=== PATIENT | male | born 1960 | race Caucasian/White ===

== ENCOUNTER 2020-12-20 20:16 | Inpatient (IN) | payer MEDICARE, OTHER ==
[~2020-12-20] VITALS: Ht 172.7 cm; Wt 68.0 kg
--- NOTE | 2020-12-20 21:03 | NUR ---
Dr. Roberts at bedside for MSE.
[2020-12-20 21:16] LABS: *BILIRUBIN,URIN 1+ (NEGATIVE); *CLARITY,URINE CLEAR (CLEAR); *COLOR,URINE DARK YELLOW (YELLOW); *KETONES,URINE 3+ (NEGATIVE); LEUKOCYTE ESTERASE ,URINE NEGATIVE (NEGATIVE); NITRITE, URINE NEGATIVE (NEGATIVE); UGLUCOSE NEGATIVE (NEGATIVE)
[2020-12-20 21:17] LABS: *BLOOD, URINE TRACE INTACT (NEGATIVE); BACTERIA,URINE NONE SEEN /HPF (NONE SEEN); WBC,URINE 0-3 /HPF (0-3)
[2020-12-20 21:40] LABS: CARBON DIOXIDE 30 mmol/L (21-32); CHLORIDE 102 mmol/L (98-107); CREATININE 0.8 mg/dL (0.6-1.3); GLUCOSE 76 mg/dL (74-106); POTASSIUM 4.2 mmol/L (3.5-5.1); UREA NITROGEN, BLOOD 13 mg/dL (7-18)
[2020-12-20 21:41] LABS: BASOPHILS # (AUTO) 0.1 K/uL (0.0-8.0); EOSINOPHILS # (AUTO) 0.3 K/uL (0.0-0.7); EOSINOPHILS % (AUTO) 5.4 % (0.0-7.0); HEMATOCRIT 43.5 % (36.7-47.1); HEMOGLOBIN 14.6 g/dL (12.5-16.3); LYMPHOCYTES # (AUTO) 1.6 K/uL (20.0-40.0); LYMPHOCYTES % (AUTO) 29.4 % (20.5-51.5); MEAN CORPUSCULAR HEMOGLOBIN 32.3 uug (23.8-33.4); MEAN CORPUSCULAR HGB CONC 34 g/dL (32.5-36.3); MEAN CORPUSCULAR VOLUME 96.2 fL (73.0-96.2); MONOCYTES # (AUTO) 0.5 K/uL (2.0-10.0); MONOCYTES % (AUTO) 8.9 % (0.0-11.0); NEUTROPHILS # (AUTO) 2.9 K/uL (1.8-8.9); NEUTROPHILS % (AUTO) 55.3 % (38.5-71.5); PLATELET COUNT (AUTO) 418 K/uL (152-348); RED BLOOD CELL COUNT(AUTO) 4.52 MIL/uL (4.06-5.63); WHITE BLOOD COUNT (AUTO) 5.3 K/uL (3.6-10.2)
[2020-12-20 21:45] LABS: ALANINE AMINOTRANSFERASE 26 U/L (16-63); ALKALINE PHOSPHATASE 67 U/L (50-136); ASPARTATE AMINOTRANSFERASE 20 U/L (15-37); BILIRUBIN,DIRECT 0.2 mg/dL (0.0-0.2); BILIRUBIN,TOTAL 0.6 mg/dL (0.2-1.0); TOTAL PROTEIN, SERUM 7.3 g/dL (6.4-8.2)
[2020-12-20 21:46] LABS: ACETAMINOPHEN < 2.0 ug/mL (10-30)
[2020-12-20 21:47] LABS: ETHANOL < 3 MG/DL (0-0)
--- NOTE | 2020-12-20 21:54 | NUR ---
Patient medically cleared by Dr. Roberts.
--- NOTE | 2020-12-21 00:04 | NUR ---
Report given to Jacinta REYES [facility].
[2020-12-21] MEDS ORDERED: ACETAMINOPHEN 325 MG TABLET PO PRN (00:45)
[2020-12-21] MEDS ORDERED: MAGNESIUM HYDROXIDE 30 ML LIQUID UDC PO PRN (00:45)
[2020-12-21] MEDS ORDERED: TEMAZEPAM 7.5 MG CAPSULE PO PRN (00:45)
[2020-12-21] MEDS ORDERED: MAG HYDROX/AL HYDROX/SIMETH 30 ML LIQUID UDC PO PRN (00:45)
--- NOTE | 2020-12-21 01:30 | NUR ---
GPS ADMISSION NOTE: Patient is a 60 year old man [facility] where he has been under arrest, then transferred to [facility] for DTS and GD. Per the hold, this patient had stated that he was feeling depressed and wished to hurt himself. After saying that, he became uncooperative and stopped answering questions. It says on the hold that the patient has had prior 5150s . Upon face to face evaluation, patient appears unkept and disheveled. His face is sunburned and his cloths are dirty and malodorous. Patient is homeless. When asked about why he is on a hold, the patients answers were vague. His speech is tangental and garbled making it very difficult to understand him , engage in meaningful conversation or to conduct a interview. The patient made delusional statements at times, and would sign the papers for the chart . as " Outlaw" or " Wanted ". Patient adamantly denied ever saying that he wanted to hurt himself .As a matter of fact ,he said he would rather hurt others. Assistant Winemaker gave patient a shower, some food and oriented him to the unit and the unit rules. A Patient Advisement and A patients Rights handbook were provided. There is no documented medical history, only schizophrenia, anxiety and depression. The patient is a poor historian. Patient declined to take any PRN medications and went to his bed without any problems. Continue to monitor this patient for medication compliance, behavior escalation and SI. V.S. noted to be stable.
--- NOTE | 2020-12-21 06:15 | NUR ---
Patient is up early this am and only slept 2.15 hours. The patient wanted to be in the day room, with a paper and a pencil , so he could write his " Resume". Speech seems a bit more clear this morning, but patient continues to be delusional with nonsensical speech. Patient is seen doing a lot of pacing around the unit with a high energy level. This communications writer offered some medication to help relax the patient but he refused. Continuing to monitor for SI, HI and any behavior escalation. Its possible that this patient will be non compliant with medications. Will endorse concerns to the on coming nurse.
[2020-12-21 07:30] VITALS: BP 104/62
[2020-12-21] MEDS: NICOTINE 21 MG/24HR PATCH TD SCH (09:00)
[2020-12-21] MEDS: OLANZAPINE ZYDIS 5 MG TAB.RAPDIS PO SCH ×2 (15:43→20:05)
[2020-12-21 16:01] VITALS: BP 103/59
[2020-12-21] MEDS: DIVALPROEX 500 MG TABLET.DR PO SCH (16:05)
[2020-12-21 20:00] VITALS: BP 97/55
--- NOTE | 2020-12-21 21:00 | NUR ---
Received Pt lying in bed with his eyes closed, arouses easily, but irritable upon waking. Pt refused assessment stating, "I've already answered these questions." When asked when he would like to take his medication, Pt stated, "I've already taken my medications." Pt then put the blanket over his head and turned over. Later, Pt was approached with his medications in his room with this show card writer and a male staff. Pt reluctantly took his medication, but when he was asked to open his mouth to check for cheeking, Pt exploded in anger, banged his fists repeatedly on the bedside table and screamed "fuck you, I'm not a fucking liar you bitch" I'll fucking kill you and him!" Pt was verbally redirected, but refused to contract for safety, only stating, "stay the fuck out of my room". registered mail clerk and floor staff advised of Pt's unpredictable behavior. Will continue to closely monitor.
--- NOTE | 2020-12-22 06:23 | NUR ---
Pt stayed in his room most of the shift until he woke up and started pacing the hallways at 0500. Pt appears internally preoccupied and hypervigilant. Pt slept 5.45 hours.
[2020-12-22 07:30] VITALS: BP 108/57
[2020-12-22] MEDS: DIVALPROEX 500 MG TABLET.DR PO SCH ×2 (08:23→16:22)
[2020-12-22] MEDS: NICOTINE 21 MG/24HR PATCH TD SCH (08:23)
[2020-12-22] MEDS: OLANZAPINE ZYDIS 5 MG TAB.RAPDIS PO SCH ×3 (08:23→16:22)
[2020-12-22 15:07] VITALS: BP 108/44
[2020-12-22 20:06] VITALS: BP 101/61
[2020-12-23 07:30] VITALS: BP 97/69
[2020-12-23] MEDS: DIVALPROEX 500 MG TABLET.DR PO SCH ×3 (08:21→16:08)
[2020-12-23] MEDS: OLANZAPINE ZYDIS 5 MG TAB.RAPDIS PO SCH ×3 (08:21→20:20)
[2020-12-23] MEDS: NICOTINE 21 MG/24HR PATCH TD SCH (08:21)
--- NOTE | 2020-12-23 10:16 | NUR ---
ELEAZAR Initial Discharge Plan: Patient appears to be homeless and will require a detention or SNF placement. Patient does not have any next of kin contacts. SW will continue to work with patient and MD to ensure a safe and proper discharge plan.
--- NOTE | 2020-12-23 10:21 | NUR ---
Firearms Report: Superintendent Ammunition Storage completed and submitted a DOJ firearms report for 5150 danger to self and grave disability certifications. A copy of report has been placed in patient chart.
--- NOTE | 2020-12-23 10:35 | NUR ---
ELEAZAR Collateral Contact: SW contacted the number listed in the patient's next of kin, Rosalina ([phone]) and it is a wrong number. Person who answered stated they do not know a person names
[2020-12-23 15:45] VITALS: BP 111/47
[2020-12-23 20:00] VITALS: BP 114/73
--- NOTE | 2020-12-24 02:44 | NUR ---
RECEIVED PATIENT IN ACTIVITY ROOM COLORING. IRRITABLE UPON APPROACH. ASKING "WHAT DO WANT'. NOTED HYPERVIGILANT AND LOOKING AROUND HIM WITH SUSPICION.HOWEVER TOOK HIS MEDS AND WHEN REQUESTED TO OPEN HIS MOUTH FOR CHEEKING HE REFUSED. I ASKED HIM TO THEN DRINK THE WHOLE CUP OF WATER WHICH HE DID.LATER NOTED PACING UP AND DOWN AND AFTER A WHILE HE WENT TO SLEEP. VISUAL CHECKS MADE ON HIM FOR SAFETY. WILL CONTINUE TO MONITOR.
--- NOTE | 2020-12-24 06:54 | NUR ---
SLEPT FOR 8 HOURS.
[2020-12-24 07:30] VITALS: BP 107/63
[2020-12-24] MEDS: OLANZAPINE ZYDIS 5 MG TAB.RAPDIS PO SCH ×3 (08:53→20:10)
[2020-12-24] MEDS: DIVALPROEX 500 MG TABLET.DR PO SCH ×3 (08:53→16:28)
[2020-12-24] MEDS: NICOTINE 21 MG/24HR PATCH TD SCH (08:53)
[2020-12-24] MEDS ORDERED: NICOTINE 7 MG/24HR PATCH TD SCH (09:00)
--- NOTE | 2020-12-24 14:57 | NUR ---
Brief Substance Abuse Intervention: Patient was provided with a brief substance abuse intervention for smoking and referred to the following substance abuse programs: [facility] Substance Abuse Self-helpline ([phone]); [facility] [address] [place] [address] ([phone]); [facility] [address] [facility] [address] ([phone]); [facility] ([phone]); [facility] ([phone]); [facility] ([phone]); [facility] ([phone]).
--- NOTE | 2020-12-24 15:04 | NUR ---
ELEAZAR Vertical Punch OperatorIncinerator Attendant: ELEAZAR spoke with Emma Vertical Punch Operator from [facility] [address] [facility] [address] ([phone]) who provided collateral information. Emma stated that she has been the patient's renal case manager for over 20 years and that the patient has been homeless for a very long time. Emma stated patient refuses any placement and chooses to be homeless. Emma states that the patient follows up with Psychiatrist Mamta Green [address], [facility] [address] ([phone]). Emma stated that she has referred the patient for Primary Care at [facility] [address], [address] ([phone]). Emma informed that the patient receives Invega Sustenna 234mg every 4 weeks which was due on 12/18 which he didn't get due to being arrested, last he got it on 11/19. ELEAZAR informed Dr. Singletary of this information. Emma requested for a chest x-ray for possible placement in [facility]. ELEAZAR informed ELKIN Ramirez.
--- NOTE | 2020-12-24 15:34 | NUR ---
ELEAZAR Individual Patient Therapy: SW met with patient and discussed discharge planning. SW offered patient SNF placement options in [facility] and patient refused. SW will offer patient SNF placement options in [facility]. Patient refused to stay in [facility] and would like to return to [facility]. ELEAZAR discussed with Dr. Singletary as well.
[2020-12-24 15:37] VITALS: BP 106/71
[2020-12-24 20:29] VITALS: BP 128/84
--- NOTE | 2020-12-25 06:09 | NUR ---
GPS: Pt.slept for 6 hrs.last night. Remains guarded,evasive and unpredictable. Safety emphasized. Will continue to monitor.
--- NOTE | 2020-12-25 06:54 | NUR ---
GPS: Pt.continues to refuse blood drawing ordered for him despite explanation of importance. Pt.is delusional,grandiose,easily irritable when approached. Will continue to re-direct prn.
[2020-12-25 07:30] VITALS: BP 112/62
--- NOTE | 2020-12-25 08:28 | NUR ---
RECEIVED A CALL FROM DR. MARTINEZ, [facility] THIS MORNING, RELAYED ORDER TO NURSE IN CHARGE , WILL CONTINUE FOLLOW UP
[2020-12-25] MEDS: NICOTINE 21 MG/24HR PATCH TD SCH ×2 (09:00→09:37)
[2020-12-25] MEDS: DIVALPROEX 500 MG TABLET.DR PO SCH ×3 (09:34→17:12)
[2020-12-25] MEDS ORDERED: OLANZAPINE ZYDIS 5 MG TAB.RAPDIS PO SCH (13:00)
--- NOTE | 2020-12-25 13:15 | NUR ---
Court Hearing: Patient's court hearing is today and it is upheld for GD.
[2020-12-25] MEDS ORDERED: PALIPERIDONE 234 MG IM ONE (13:45)
[2020-12-25 16:51] VITALS: BP 115/72
--- NOTE | 2020-12-25 18:33 | NUR ---
patient seen walking in the hallway, calm cooperative redirectable, patient responding to internal stimuli, on monitoring [id number] for safety no sign of distress
[2020-12-25] MEDS: LORAZEPAM 1 MG TABLET PO PRN (20:35)
--- NOTE | 2020-12-25 20:37 | NUR ---
GPS: Pt.is agitated,talking non-sensical. Delusional and grandiose. Came out to the nurses station and was posturing to strike out. Re-directed by staff. Poor insight to present situation. Ativan 1 mg PO offered and taken with little persuasion from staff. Will continue to monitor behavior for further escalation. aware with orders.
[2020-12-25 20:39] VITALS: BP 135/81
[2020-12-25] MEDS: OLANZAPINE 5 MG TABLET PO PRN (21:52)
--- NOTE | 2020-12-25 21:53 | NUR ---
GPS: Pt. remains easily agitated/irritable when being re-directed. Continues to be hyperverbal,responding to internal stimuli and unpredictable. Zyprexa 5mg PO given and taken. Will continue to monitor. Safe environment provided.
--- NOTE | 2020-12-26 06:32 | NUR ---
GPS: Pt.slept for 7 hrs.last night and currently still asleep at this time. Safe environment provided. Behavior monitoring continues.
[2020-12-26 07:30] VITALS: BP 101/65
[2020-12-26] MEDS: DIVALPROEX 500 MG TABLET.DR PO SCH ×3 (08:27→16:24)
[2020-12-26] MEDS: NICOTINE 21 MG/24HR PATCH TD SCH (08:27)
--- NOTE | 2020-12-26 10:42 | NUR ---
ELEAZAR SNF Referral: ELEAZAR faxed patient's referral packet to the following facilities for review and possible placement: [facility]-[phone] attention to K[facility] attention to [facility] attention to Laura Addendum: 12/27/20 at 1000 by JUSTIN GUTIERREZ Patient is accepted at [facility] for placement.
--- NOTE | 2020-12-26 10:46 | NUR ---
ELEAZAR Toe StripperOyster Shipper: ELEAZAR left a voicemail for Emma Toe Stripper from [facility] [address], [facility] [address] ([phone]) to discuss patient's discharge plans. Waiting for return call.
[2020-12-26 17:28] VITALS: BP 109/58
[2020-12-26 20:11] VITALS: BP 118/64
--- NOTE | 2020-12-27 06:34 | NUR ---
GPS: Pt.slept for 6.30 last night. Remains delusional,unpredictable and easily agitated when being re-directed. Pacing up and down the hallway at this time and has disorganized thoughts and non-sensical. Safe environment provided. Will continue to monitor.
[2020-12-27 07:30] VITALS: BP 98/51
[2020-12-27] MEDS: NICOTINE 21 MG/24HR PATCH TD SCH (08:18)
[2020-12-27] MEDS: DIVALPROEX 500 MG TABLET.DR PO SCH ×3 (08:18→16:04)
[2020-12-27 16:14] VITALS: BP 108/62
--- NOTE | 2020-12-27 18:20 | NUR ---
received patient AOx1-2, patient appears disorganized, responding to internal stimuli, patient seen taking naps pacing the hallway, unpredictable labile, assisted with ADL, took shower, patient enjoys snacks, patient on monitoring [id number] for safety, been compliant with medication, milieu therapy and care, assisted with his ADL, denies SI and HI, denies AH/VH at this time, no sign of distress
[2020-12-27 20:09] VITALS: BP 137/75
[2020-12-27] MEDS: LORAZEPAM 1 MG TABLET PO PRN (20:25)
[2020-12-27] MEDS: DOCUSATE SODIUM 100 MG CAPSULE PO SCH (20:25)
[2020-12-27] MEDS: OLANZAPINE 5 MG TABLET PO PRN (20:25)
--- NOTE | 2020-12-28 06:05 | NUR ---
Received the patient disheveled and unkept laying in his bed. When approached by the press writer the patient became easily aggravated and irritable. The patient can not express himself in any logical manor or hold any conversation without being completely irrational and delusional. Medications were provided to help the patient stay calmer with the hopes that there would not be any psychotic , combative episodes. Patient slept 6.30 hours last night and is up early this am pacing up and down the stone. Totally ignoring the staff and arguing with his roommate.The plan is to keep everyone safe, monitor closely this patients labile and aggressive behavior and continue with deescalation of situations as they arise..
[2020-12-28] MEDS: NICOTINE 21 MG/24HR PATCH TD SCH (08:00)
[2020-12-28] MEDS: DOCUSATE SODIUM 100 MG CAPSULE PO SCH ×2 (08:00→20:07)
[2020-12-28] MEDS: DIVALPROEX 500 MG TABLET.DR PO SCH ×3 (08:00→16:00)
[2020-12-28 08:33] VITALS: BP 92/64
[2020-12-28 16:29] VITALS: BP 111/64
[2020-12-28 20:00] VITALS: BP 116/71
[2020-12-29 07:30] VITALS: BP 102/58
[2020-12-29] MEDS: NICOTINE 21 MG/24HR PATCH TD SCH (08:37)
[2020-12-29] MEDS: DOCUSATE SODIUM 100 MG CAPSULE PO SCH ×2 (08:37→21:00)
[2020-12-29] MEDS: DIVALPROEX 500 MG TABLET.DR PO SCH ×3 (08:37→16:33)
[2020-12-29 16:00] VITALS: BP 119/64
[2020-12-29 20:00] VITALS: BP 133/81
--- NOTE | 2020-12-30 05:56 | NUR ---
Received the patient in his bed with the covers over his head. When greeting card writer asked if he was going to take his PM medication, the patient refused. This patient has been isolative and has poor eye contact as well as poor verbal skills. He continues to be delusional and labile. Patient slept 10.15 minutes and is still asleep. Spool Sander was unable to engage the patient in any meaningful conversation. Continuing to asses patients for any needs he may have and to monitor for labile behavioral escalation with staff and with the room mates.
[2020-12-30 07:30] VITALS: BP 109/69
[2020-12-30] MEDS: NICOTINE 21 MG/24HR PATCH TD SCH (08:48)
[2020-12-30] MEDS: DOCUSATE SODIUM 100 MG CAPSULE PO SCH ×2 (09:07→20:10)
[2020-12-30] MEDS: DIVALPROEX 500 MG TABLET.DR PO SCH ×2 (09:07→20:10)
[2020-12-30 15:39] VITALS: BP 105/65
[2020-12-30 20:42] VITALS: BP_SYST 111; BP_SYST 116; BP_DIAS 64; BP_DIAS 66
[2020-12-31 07:30] VITALS: BP 109/67
[2020-12-31 08:16] LABS: BASOPHILS % (AUTO) 0.4 % (0.0-2.0); EOSINOPHILS # (AUTO) 0.2 K/uL (0.0-0.7); HEMATOCRIT 42.4 % (36.7-47.1); HEMOGLOBIN 14.3 g/dL (12.5-16.3); LYMPHOCYTES # (AUTO) 1.2 K/uL (20.0-40.0); LYMPHOCYTES % (AUTO) 11.8 % (20.5-51.5); MEAN CORPUSCULAR HGB CONC 34 g/dL (32.5-36.3); MONOCYTES % (AUTO) 10.2 % (0.0-11.0); NEUTROPHILS # (AUTO) 7.7 K/uL (1.8-8.9); NEUTROPHILS % (AUTO) 75.6 % (38.5-71.5); PLATELET COUNT (AUTO) 307 K/uL (152-348); RED BLOOD CELL COUNT(AUTO) 4.46 MIL/uL (4.06-5.63); WHITE BLOOD COUNT (AUTO) 10.2 K/uL (3.6-10.2)
[2020-12-31 08:34] LABS: BILIRUBIN,TOTAL 0.3 mg/dL (0.2-1.0); CREATININE 0.7 mg/dL (0.6-1.3); POTASSIUM 4.3 mmol/L (3.5-5.1); TOTAL PROTEIN, SERUM 6.5 g/dL (6.4-8.2)
[2020-12-31] MEDS: NICOTINE 21 MG/24HR PATCH TD SCH (09:00)
[2020-12-31] MEDS: DOCUSATE SODIUM 100 MG CAPSULE PO SCH ×2 (09:30→20:38)
[2020-12-31] MEDS: DIVALPROEX 500 MG TABLET.DR PO SCH (09:30)
[2020-12-31 15:11] VITALS: BP 116/68
[2020-12-31 20:23] VITALS: BP 110/71
[2020-12-31 22:36] LABS: *BILIRUBIN,URIN NEGATIVE (NEGATIVE); *BLOOD, URINE NEGATIVE (NEGATIVE); *CLARITY,URINE CLEAR (CLEAR); *COLOR,URINE YELLOW (YELLOW); *KETONES,URINE TRACE (NEGATIVE); *UROBILINOGEN,URINE 0.2 E.U./dl (NORMAL); LEUKOCYTE ESTERASE ,URINE NEGATIVE (NEGATIVE); NITRITE, URINE NEGATIVE (NEGATIVE); PH,URINE 7.5 (5.0-8.0); UGLUCOSE NEGATIVE (NEGATIVE)
--- NOTE | 2020-12-31 23:10 | NUR ---
RECEIVED PATIENT IN BED.NOTED ISOLATIVE,IRRITABLE AND WITHDRAWN. MOOD IS LABILE. COULD NOT GET HIM TO HOLD ANY MEANINGFUL CONVERSATIONS HE EITHER IGNORES YOU FOR THE MOST PART OR MUTTERS TO HIMSELF AND COULD NOT BE HEARD. HOWEVER COMPLIANT WITH MEDICATIONS. VISUAL CHECKS MADE ON HIM FOR SAFETY. WILL CONTINUE TO MONITOR.
--- NOTE | 2021-01-01 06:31 | NUR ---
SLEPT FOR 8:00 HOURS.
[2021-01-01 07:30] VITALS: BP 117/62
[2021-01-01 07:31] LABS: BASOPHILS # (AUTO) 0.1 K/uL (0.0-8.0); BASOPHILS % (AUTO) 0.5 % (0.0-2.0); EOSINOPHILS # (AUTO) 0.1 K/uL (0.0-0.7); EOSINOPHILS % (AUTO) 1.2 % (0.0-7.0); HEMATOCRIT 42.8 % (36.7-47.1); HEMOGLOBIN 14.5 g/dL (12.5-16.3); LYMPHOCYTES # (AUTO) 1.3 K/uL (20.0-40.0); LYMPHOCYTES % (AUTO) 12.6 % (20.5-51.5); MEAN CORPUSCULAR HEMOGLOBIN 32.2 uug (23.8-33.4); MEAN CORPUSCULAR HGB CONC 34 g/dL (32.5-36.3); MEAN CORPUSCULAR VOLUME 95.2 fL (73.0-96.2); MONOCYTES # (AUTO) 1.3 K/uL (2.0-10.0); MONOCYTES % (AUTO) 12.7 % (0.0-11.0); NEUTROPHILS # (AUTO) 7.7 K/uL (1.8-8.9); PLATELET COUNT (AUTO) 302 K/uL (152-348); RED BLOOD CELL COUNT(AUTO) 4.49 MIL/uL (4.06-5.63); WHITE BLOOD COUNT (AUTO) 10.6 K/uL (3.6-10.2)
[2021-01-01 07:50] LABS: BILIRUBIN,TOTAL 0.3 mg/dL (0.2-1.0); CREATININE 0.9 mg/dL (0.6-1.3); POTASSIUM 4.5 mmol/L (3.5-5.1); TOTAL PROTEIN, SERUM 6.9 g/dL (6.4-8.2)
[2021-01-01] MEDS: DOCUSATE SODIUM 100 MG CAPSULE PO SCH ×2 (08:26→20:00)
[2021-01-01] MEDS: NICOTINE 21 MG/24HR PATCH TD SCH (08:26)
[2021-01-01] MEDS ORDERED: DIVALPROEX 250 MG TABLET.DR PO SCH (09:00)
[2021-01-01 16:00] VITALS: BP 111/69
[2021-01-01 20:12] VITALS: BP 101/60
--- NOTE | 2021-01-01 21:02 | NUR ---
Received patient in his bed, med compliant, interacts with staff and peers upon approach. Patient will remain in a psych facility for further evaluation and treatment.
[2021-01-02 07:30] VITALS: BP 110/65
[2021-01-02] MEDS: NICOTINE 21 MG/24HR PATCH TD SCH (08:27)
[2021-01-02] MEDS: DOCUSATE SODIUM 100 MG CAPSULE PO SCH (08:27)
--- NOTE | 2021-01-02 08:33 | NUR ---
SW Discharge Note: Patient will be discharged to residential [facility], [facility] [address] [place] [address] ([phone]) via ambulance transportation at 1PM. Application Penetration Tester spoke with Katerin, Patient Account Specialist at [facility] ([phone]), and he confirmed that patient will be accepted at their facility today. Patient is alert and oriented x3. Patient is not able to plan for self-care at this time but is willing to accept care provided for him at the facility. Patient denies suicidal or homicidal ideation. Patient is aware and agreeable with discharge plans. Patient presents with appropriate mood and congruent affect. Patient will follow-up with (Psychiatrist) Dr. Singletary and (Quantitative Strategy Analyst) Dr. Quach at [facility]. Patient signed the homeless waiver upon discharge and a copy was placed in the chart. Homeless resources were provided and include [address] information line for shelters and homeless resources. A copy of all resources given to patient was also placed in the chart. Emma Police Superintendent from from [facility] [address] [address] ([phone]) is aware and agreeable with discharge plan.
--- NOTE | 2021-01-02 08:35 | NUR ---
ELEAZAR Mines InspectorResearch And Development Researcher: ELEAZAR left a voicemail for Emma Mines Inspector from [facility] [address], [facility] [address] ([phone])and informed of the patient's discharge today to [facility]. Addendum: 01/02/21 at 0837 by JUSTIN GUTIERREZ ELEAZAR spoke with Emma and confirmed.
--- NOTE | 2021-01-02 10:10 | NUR ---
CALLED AND SPOKE WITH DR. MARTINEZ REGARDING , HOME MEDICATION ORDER FOR THE PATIENT DC TODAY , WITH ORDERS TO DO STAT EKG, PATIENT AWARE, ORDERS MADE AND CARRIED OUT
--- NOTE | 2021-01-02 14:47 | NUR ---
Discharged patient to [facility] SNF. AOx2-3. No signs of acute distress. Ambulatory. Self-care. Patient denies SI/ HI. Patient denies pain/ discomfort. Patient is aware and agreeable with discharge plans. Patient will follow up with Dr. Olimpia Singletary (Psychiatrist) and Dr. Virgilio Quach (Furniture Restorer) at [facility]. [facility] [id number] [place] [address]. Phone #: . Homeless resources were provided and include 211 information line for shelters and homeless resources. Emma Tenant Coordinator from [facility] [address], [facility] [address] ([phone]) is awake and agreeable with discharge plan. ID band removed. Belongings given to patient. Patient left via ambulance gurney.
== END 2021-01-02 14:40 | DRG 885 ==
LOC: ER 20:24 → GPS 12-21 00:20
PROVIDERS: ADMIT Psychiatry & Neurology Psychosomatic Medicine; ATTEND Registered Nurse
DX: F25.9 Schizoaffective disorder, unspecified (principal); R45.851 Suicidal ideations; Z59.0 Homelessness; K59.00 Constipation, unspecified; F17.210 Nicotine dependence, cigarettes, uncomplicated; Z91.14 Patient's other noncompliance with medication regimen; F29 Unspecified psychosis not due to a substance or known physiological condition; Z20.822 Contact with and (suspected) exposure to COVID-19; Z73.6 Limitation of activities due to disability; R94.31 Abnormal electrocardiogram [ECG] [EKG]
CPT/HCPCS: 36415; 71045; 80164; 85025; 87086; 93005; A4663; G0480; J3490

== ENCOUNTER 2021-01-28 13:03 | Inpatient (IN) | payer MEDICARE ==
[~2021-01-28] VITALS: Ht 172.7 cm; Wt 73.5 kg
[2021-01-28] MEDS ORDERED: ZIPRASIDONE MESYLATE 20 MG VIAL IM ONE ×2 (13:15→13:22)
[2021-01-28] MEDS ORDERED: diphenhydrAMINE 50 MG/1 ML VIAL IM ONE (13:15)
[2021-01-28] MEDS ORDERED: LORAZEPAM 2 MG/1 ML VIAL IM ONE (13:15)
--- NOTE | 2021-01-28 13:16 | NUR ---
IM beandryl and IM Geodon given in left deltoid
--- NOTE | 2021-01-28 13:17 | NUR ---
IM Ativan given in right deltoid
[2021-01-28] MEDS ORDERED: diphenhydrAMINE 50 MG/1 ML VIAL ONE (13:22)
[2021-01-28] MEDS ORDERED: LORAZEPAM 2 MG/1 ML VIAL ONE (13:23)
[2021-01-28] MEDS ORDERED: MAGN400O6 PO (13:25)
[2021-01-28] MEDS ORDERED: LORA-258 PO (13:25)
[2021-01-28] MEDS ORDERED: DOCU100C36 PO (13:25)
--- NOTE | 2021-01-28 13:27 | NUR ---
Patient is in room 3. he is awake and alert. He is confused and yells and screams intermittently. 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 He tried to leave the ER but we lead him back to the room. I gave him meds as ordered.
--- NOTE | 2021-01-28 13:29 | NUR ---
Security chen at bedside for observation
[2021-01-28 13:32] LABS: BASOPHILS # (AUTO) 0.1 K/uL (0.0-8.0); BASOPHILS % (AUTO) 0.6 % (0.0-2.0); EOSINOPHILS # (AUTO) 0.2 K/uL (0.0-0.7); EOSINOPHILS % (AUTO) 2.5 % (0.0-7.0); HEMATOCRIT 40.7 % (36.7-47.1); HEMOGLOBIN 13.8 g/dL (12.5-16.3); LYMPHOCYTES # (AUTO) 1.8 K/uL (20.0-40.0); MEAN CORPUSCULAR HEMOGLOBIN 31.9 uug (23.8-33.4); MEAN CORPUSCULAR HGB CONC 34 g/dL (32.5-36.3); MEAN CORPUSCULAR VOLUME 93.7 fL (73.0-96.2); MONOCYTES # (AUTO) 0.6 K/uL (2.0-10.0); MONOCYTES % (AUTO) 6.9 % (0.0-11.0); NEUTROPHILS # (AUTO) 6.2 K/uL (1.8-8.9); PLATELET COUNT (AUTO) 302 K/uL (152-348); RED BLOOD CELL COUNT(AUTO) 4.35 MIL/uL (4.06-5.63); WHITE BLOOD COUNT (AUTO) 8.9 K/uL (3.6-10.2)
[2021-01-28 13:36] LABS: CARBON DIOXIDE 28 mmol/L (21-32); CHLORIDE 103 mmol/L (98-107); CREATININE 1.1 mg/dL (0.6-1.3); GLUCOSE 170 mg/dL (74-106); POTASSIUM 4.2 mmol/L (3.5-5.1); UREA NITROGEN, BLOOD 18 mg/dL (7-18)
[2021-01-28 13:39] LABS: ETHANOL < 3 MG/DL (0-0)
[2021-01-28 13:42] LABS: *BILIRUBIN,URIN NEGATIVE (NEGATIVE); *CLARITY,URINE CLEAR (CLEAR); *COLOR,URINE YELLOW (YELLOW); *KETONES,URINE NEGATIVE (NEGATIVE); *UROBILINOGEN,URINE 0.2 E.U./dl (NORMAL); LEUKOCYTE ESTERASE ,URINE NEGATIVE (NEGATIVE); NITRITE, URINE NEGATIVE (NEGATIVE); UGLUCOSE NEGATIVE (NEGATIVE)
[2021-01-28] MEDS ORDERED: NA P133E RC (13:44)
[2021-01-28] MEDS ORDERED: ACET-2154 PO ×3 (13:44)
[2021-01-28] MEDS ORDERED: PALI117D IM (13:44)
[2021-01-28] MEDS ORDERED: BISA10SU61 RC (13:44)
[2021-01-28] MEDS ORDERED: HYDROMORPHONE 1 MG/1 ML DISP.SYRIN IV ONE (13:45)
[2021-01-28 13:46] LABS: *BLOOD, URINE TRACE (NEGATIVE)
[2021-01-28 13:49] LABS: *AMPHETAMINE, URINE NEGATIVE (NEGATIVE); *CANNABINOID, URINE NEGATIVE (NEGATIVE); *COCCAINE, URINE NEGATIVE (NEGATIVE); *OPIATE, URINE NEGATIVE (NEGATIVE); *PHENCYCLIDINE SCREEN,URINE NEGATIVE (NEGATIVE)
[2021-01-28 13:50] LABS: THYROID STIMULATING HORMONE 2.034 mIU/mL (0.358-3.740)
[2021-01-28 13:52] LABS: ALANINE AMINOTRANSFERASE 14 U/L (16-63); ALKALINE PHOSPHATASE 64 U/L (50-136); ASPARTATE AMINOTRANSFERASE 13 U/L (15-37); BILIRUBIN,DIRECT 0.1 mg/dL (0.0-0.2); BILIRUBIN,TOTAL 0.3 mg/dL (0.2-1.0); TOTAL PROTEIN, SERUM 7.3 g/dL (6.4-8.2)
[2021-01-28 13:53] LABS: ACETAMINOPHEN < 2.0 ug/mL (10-30)
--- NOTE | 2021-01-28 14:02 | NUR ---
Patient is awake but quiet, vital signs stable
--- NOTE | 2021-01-28 14:20 | NUR ---
Art, CHOCOLATE PACKER here for eval. Covid swabs sent to lab
--- NOTE | 2021-01-28 15:03 | NUR ---
patient is sitting up eating a sandwich
--- NOTE | 2021-01-28 15:22 | NUR ---
REPORT GIVEN TO TING REYES IN U
--- NOTE | 2021-01-28 15:45 | NUR ---
GPS: Nursing Notes: Admitting Notes: Patient admitted to [facility] on 5150 DTO & GD due to agitation, aggressive behavior, delusional, paranoid. Patient was striking out at staff, threatening staff, unable to formulate a plan for self care due to his behavior. On face to face assessment, patient expressing violent outburst without provocation, threatening staff, verbal abusive, using racial statements toward staff, loud and angry affect, restless behavior, A/Ox1, believes that he is a doctor, believes that he is a [employer] agent, grandiose, threatening staff, shadow boxing staff, stated "I was in [employer]...", "I am Macho Choudhury.. The boxer.. I can fuck you up..", "I am going to kill...", redirected and reoriented to the unit, give admitting package to patient, ambulatory, self care, Dr. Singletary and Dr. Fairchild informed of admission by charge nurse, continue to monitor for safety.
[2021-01-28 16:39] LABS: BACTERIA,URINE NONE SEEN /HPF (NONE SEEN); SQUAMOUS EPITHELIAL CELL,UR NONE SEEN /HPF (NONE SEEN); WBC,URINE 0-3 /HPF (0-3)
[2021-01-28 16:40] LABS: MUCUS,URINE FEW /LPF (0-FEW)
[2021-01-28 16:49] VITALS: BP 100/57
[2021-01-28] MEDS ORDERED: MAG HYDROX/AL HYDROX/SIMETH 30 ML LIQUID UDC PO PRN (17:15)
[2021-01-28] MEDS ORDERED: MAGNESIUM HYDROXIDE 30 ML LIQUID UDC PO PRN (17:15)
[2021-01-28] MEDS: LORAZEPAM 1 MG TABLET PO PRN (19:39)
[2021-01-28 20:52] VITALS: BP 105/72
[2021-01-28] MEDS: TEMAZEPAM 7.5 MG CAPSULE PO PRN (22:17)
[2021-01-29] MEDS: LORAZEPAM 1 MG TABLET PO PRN ×4 (05:27→22:47)
--- NOTE | 2021-01-29 05:27 | NUR ---
GPS: Pt.is awake,pacing up and down the hallway. Constantly talking to self. Paranoid,delusional and disorganized. Easily irritable when being re-directed. Ativan 1mg PO given and taken after some persuasion from staff. Safe environment provided. Will continue to monitor.
--- NOTE | 2021-01-29 06:44 | NUR ---
GPS: Pt.refused scheduled blood drawing this a.m. despite explanation of risks vs benefits x3. Remains easily irritable/agitated when being re-directed. Will continue to monitor.
--- NOTE | 2021-01-29 07:29 | NUR ---
Received report from ELKIN Stephen. All questions, comments, and concerns were addressed. Received patient awake and pacing in the hallway. bed is in low and locked position. Patient is alert and oriented to name only.
[2021-01-29 07:30] VITALS: BP 113/73
[2021-01-29] MEDS: DOCUSATE SODIUM 100 MG CAPSULE PO SCH ×2 (08:02→16:17)
--- NOTE | 2021-01-29 09:13 | NUR ---
Firearms Report: Greaser Operator completed and submitted a DOJ firearms report for 5150 grave disability certification. A copy of report has been placed in patient chart.
[2021-01-29] MEDS ORDERED: OLANZAPINE 10 MG VIAL IM ONE ×2 (09:15→14:00)
[2021-01-29] MEDS ORDERED: OLANZAPINE ZYDIS 5 MG TAB.RAPDIS PO SCH (09:15)
--- NOTE | 2021-01-29 09:15 | NUR ---
Patient is pacing in the hallway, he is hyperverbal, nonsensical, noted with delusions and unable to maintain a logical or linear conversation. Patient is escalating in behavior, pacing fast and raising his voice. Dr. Singletary gave orders for Zyprexa Zydis 5 mg PO Once. After orders were placed, patient became agitated, yelling at staff, and escalating in behavior. Patient is talking about the 4 horsemen of the apocolypse and other illogical, noncoherent things. ordered Zyprexa 10 mg IM once. Security called. IM administered without adverse reaction. Patient continues with delusional thought process and nonsensical speech.
--- NOTE | 2021-01-29 10:00 | NUR ---
LEEAZAR Initial Discharge Plan: Patient currently resides at [facility]. This SW contacted Katerin admin from [facility] who stated pt is welcomed back upon dc. Patient does not have any family to contact at this time. ELEAZAR will work with pt, treatment team, and MD to coordinate proper discharge.
--- NOTE | 2021-01-29 10:04 | NUR ---
Treatment Plan: Patient refused to sign treatment plan due to aggressive behavior and confusion.
--- NOTE | 2021-01-29 11:37 | NUR ---
Patient walked to the nurses station and started loudly yelling at the nurses. Patient continues to be illogical, nonsensical, and angry. Patient is unable to be redirected due to his confusion and disorientation. Security called to unit to uphold unit safety. Patient given PRN Ativan 1 mg PO. Patient continues rambling and noted with grandiose delusions.
[2021-01-29] MEDS: risperiDONE 1 MG TABLET PO SCH ×2 (12:10→16:15)
--- NOTE | 2021-01-29 13:53 | NUR ---
SW NOTE: During group this afternoon, patient became verbally aggressive and physically threatening. Yelling at this social work lecturer and doctor passing by.
--- NOTE | 2021-01-29 14:41 | NUR ---
Patient is pacing in the hallway speaking to himself loudly. Patient walked to the nurses station and began loudly yelling at staff and threatening staff. Patient provided with redirection and reality orientation but he would not de-escalate in behavior and continued to curse at staff. Dr. Singletary notified, orders received for Zyprexa 10 mg IM once. orders noted and carried out. security called to the unit. IM given with no adverse reaction. patient remains angry, irritable, and oriented to name only. he continues with his nonsensical speech, paranoid and grandiose delusions, and inability to participate in any logical conversation.
--- NOTE | 2021-01-29 15:37 | NUR ---
Patient continues pacing in the hallway speaking to himself. Patient provided with snack and is sitting in the dining room watching television.
[2021-01-29] MEDS ORDERED: OXCARBAZEPINE 150 MG TABLET PO SCH (17:00)
[2021-01-29 20:23] VITALS: BP 105/78
--- NOTE | 2021-01-29 22:50 | NUR ---
GPS: Pt.is currently awake,anxious,pacing up and down the hallway. Constantly talking to self. Paranoid,delusional,disorganized and non-sensical. Easily irritable when being re-directed. Unpredictable behavior. Ativan 1mg po given for anxiety. Will continue to re-direct prn.
[2021-01-29] MEDS: TEMAZEPAM 7.5 MG CAPSULE PO PRN (23:51)
[2021-01-30] MEDS: LORAZEPAM 1 MG TABLET PO PRN (03:29)
--- NOTE | 2021-01-30 03:29 | NUR ---
GPS: Pt.is agitated at this time. Delusional,grandiose,unpredictable and non-sensical. Re-directed to his room/bed and when pt.lay down he started kicking his feet up in the air numerous times as if he's kicking someone. Refuses to listen to re-direction. Ativan 1mg po given and taken after some persuasion from staff. Pt.kept safe at all times. Will continue to monitor for further escalation of behavior.
--- NOTE | 2021-01-30 06:28 | NUR ---
GPS: Pt.slept for about 6.15 last night. Resting comfortably in bed. No agitation noted. Will continue to monitor.
[2021-01-30 07:30] VITALS: BP 111/68
[2021-01-30] MEDS: risperiDONE 1 MG TABLET PO SCH ×3 (09:00→17:00)
[2021-01-30] MEDS: DOCUSATE SODIUM 100 MG CAPSULE PO SCH ×2 (09:00→17:00)
[2021-01-30] MEDS: OXCARBAZEPINE 150 MG TABLET PO SCH ×3 (09:00→17:00)
--- NOTE | 2021-01-30 09:56 | NUR ---
ELEAZAR Individual Therapy: project crew worker met with patient for brief counseling to help address patients presenting problem disorganized thought content. Patient appeared labile and manic. Patient unable to have a proper conversation due to his confusion.
--- NOTE | 2021-01-30 11:40 | NUR ---
Patient walked out of room yelling, hitting his chest with his hands. Words unclear. Patient walked back to room, fists clenched. Patient started yelling, words unclear. Dr. Singletary contacted for orders. Dr. Singletary ordered Zyprexa 10mg IM once. Order carried out. Patient tolerated well. Will continue to monitor.
[2021-01-30] MEDS ORDERED: OLANZAPINE 10 MG VIAL IM ONE ×2 (13:30→19:45)
--- NOTE | 2021-01-30 19:38 | NUR ---
Patient ambulating in the hallway kicking the entry door, posturing, and attempted to be combative with staff. Patient unable to be redirected at this time and he is escalating in behavior. Dr. Singletary notified, orders received for Zyprexa 10 mg IM once. Security notified to be present for patients behavior.
[2021-01-30 20:17] VITALS: BP 138/72
[2021-01-31] MEDS: TEMAZEPAM 7.5 MG CAPSULE PO PRN ×2 (01:21→21:57)
[2021-01-31] MEDS: ACETAMINOPHEN 325 MG TABLET PO PRN (01:21)
--- NOTE | 2021-01-31 04:52 | NUR ---
Patient slept for 2 hours awoke and began striking at the air, pacing up and down the hallways posturing towards staff with fist clenched. Attempted to redirect patient to their room and began yelling at staff stating "I am the higher power bitch". Notified Dr. Singletary, One time Zyprexa IM ordered. Will administer per orders.
[2021-01-31] MEDS ORDERED: OLANZAPINE 10 MG VIAL IM ONE (05:00)
--- NOTE | 2021-01-31 05:10 | NUR ---
Administered Zyprexa IM per orders. Patient compliant with medication without resistance cursing under their breath towards the security system installer present. No adverse reaction noted. Will continue to monitor patient for s/s of adverse reactions and safety. Addendum: 01/31/21 at 0615 by ELIAZAR CARDONA RN Patient continues to pace hallways, now easily redirected and decreased verbal aggression noted. VSS. No s/s of adverse reactions noted. Q15 min visual checks remain intact and continued to provide a safe environment. Addendum: 01/31/21 at 0650 by ELIAZAR CARDONA RN Patient refused AM labs, provided patient education and continued to refused. Will endorse to oncmurtaza nurse.
--- NOTE | 2021-01-31 06:56 | NUR ---
Patient refused lab works.
[2021-01-31 08:45] VITALS: BP 119/79
[2021-01-31] MEDS: risperiDONE 1 MG TABLET PO SCH ×3 (09:00→17:00)
[2021-01-31] MEDS: OXCARBAZEPINE 150 MG TABLET PO SCH ×3 (09:00→17:00)
[2021-01-31] MEDS: DOCUSATE SODIUM 100 MG CAPSULE PO SCH ×2 (09:00→17:00)
[2021-01-31 17:09] VITALS: BP 130/76
--- NOTE | 2021-01-31 18:30 | NUR ---
Patient AOx1-2. No signs of acute distress. Patient walking up and down the hallway talking to self. At times would engage in conversation with peers but would be nonsensical. Patient would make punching gestures in the air while walking in the hallway. Patient seem to be responding to internal stimuli, yelling at "someone" while pointing fingers at door and cursing. This episode will go on for less than a minute and patient would return to walk down hallway. Patient refused all due medications. Frequent patient rounding for safety. Safe environment provided. Will endorse to incoming shift for continuity of care.
[2021-02-01] MEDS: LORAZEPAM 1 MG TABLET PO PRN ×2 (00:12→22:58)
--- NOTE | 2021-02-01 00:13 | NUR ---
patient c/o anxiety. ativan 1 mg po given.
--- NOTE | 2021-02-01 05:41 | NUR ---
GPS: Remain Delusional,grandiose,unpredictable. Refuses to listen to re-direction. Ativan 1mg po given and taken after some persuasion from staff. Restoril 7.5 mg po given for sleep and effective. Will continue to monitor for further escalation of behavior.
--- NOTE | 2021-02-01 06:18 | NUR ---
slept 2.45 hrs through the night. restoril 7.5 mg po given for sleep.
[2021-02-01 07:58] VITALS: BP 110/53
[2021-02-01] MEDS: risperiDONE 1 MG TABLET PO SCH ×3 (08:47→16:02)
[2021-02-01] MEDS: DOCUSATE SODIUM 100 MG CAPSULE PO SCH ×2 (08:47→16:01)
[2021-02-01] MEDS: OXCARBAZEPINE 150 MG TABLET PO SCH ×2 (08:47→12:03)
[2021-02-01] MEDS ORDERED: OLANZAPINE 10 MG VIAL IM ONE (09:30)
--- NOTE | 2021-02-01 09:30 | NUR ---
received patient responding to internal stimuli, pacing in the hallway, patient complied with medication, patient easily agitated, patient shouting, attempted to hit the staff, called and spoke with Dr. yun with IM medication, patient tolerated the medication , on [id number] monitoring,
[2021-02-01] MEDS ORDERED: OXCARBAZEPINE 150 MG TABLET PO SCH (13:00)
[2021-02-01] MEDS: OXCARBAZEPINE 300 MG TABLET PO SCH ×2 (13:02→16:02)
[2021-02-01] MEDS: ACETAMINOPHEN 325 MG TABLET PO PRN (16:02)
[2021-02-01 16:49] VITALS: BP 125/66
--- NOTE | 2021-02-01 19:11 | NUR ---
patient redirectable, been compliant with medication the whole day, no sign of distress, endorsed to next shift
[2021-02-01 19:52] VITALS: BP 104/59
[2021-02-01] MEDS ORDERED: OLANZAPINE 10 MG VIAL IM STA (20:27)
--- NOTE | 2021-02-01 23:00 | NUR ---
GPS note: Patient was received earlier in the shift, pacing up and down the halls , responding to internal stimuli. Stopping once in a while in front of the staff and peers making hand jesters with a clinched fist or imitating a gun. This behavior escalated to the point that the patient was yelling profanities and thew a container of colored pencils , non provoked. This underwriter solicitation director tried multiple times to calm patient and redirect him, assessing his needs all the while. This behavior became more and more aggressive to the point that the patient was up in this writers face threatening to cause pain. A Code Rivera was initiated. The doctor was notified and an order was received for Zyprexa 10 mg IM once to be given. Upon the arrival of security, the patient then did not resist and the injection was given without needing any hands on. Eventually, the patient calmed done . After being monitored closely for stable V.S and combativeness, this patient ate some food and was able to speak to the underwriter solicitation director in a calm manor. Patient continued to ramble on about many delusional concepts but was and is able to let needs be known to the staff. Safety strategies have been in place and no acute distress or threatening behaviors are noted at this time.
[2021-02-02 07:30] VITALS: BP 115/62
--- NOTE | 2021-02-02 08:00 | NUR ---
Received patient in the recreation room. Patient is calm and cooperative at this time. No sign of distress at this time. Patient denies any SI or SMART. Safety measures are in place. Will continue to monitor.
[2021-02-02] MEDS: risperiDONE 1 MG TABLET PO SCH (08:54)
[2021-02-02] MEDS: OXCARBAZEPINE 300 MG TABLET PO SCH ×3 (08:54→17:25)
[2021-02-02] MEDS: DOCUSATE SODIUM 100 MG CAPSULE PO SCH ×2 (08:54→17:25)
[2021-02-02] MEDS ORDERED: risperiDONE 1 MG TABLET PO SCH (13:00)
[2021-02-02 15:20] VITALS: BP 121/66
[2021-02-02] MEDS: risperiDONE 2 MG TABLET PO SCH (17:25)
--- NOTE | 2021-02-02 18:46 | NUR ---
Pt left walking around the hallway. No sign of distress noted. Patient was compliant with medication. Vital signs are within normal limits. Safety measures implemented. Will endorse to the oncoming nurse
[2021-02-02] MEDS: LORAZEPAM 1 MG TABLET PO PRN (20:16)
[2021-02-02 20:18] VITALS: BP 116/64
[2021-02-02] MEDS: TEMAZEPAM 7.5 MG CAPSULE PO PRN (21:57)
--- NOTE | 2021-02-03 06:56 | NUR ---
Patient was medication compliant during the shift. Did not escalate and slept 6.30 hours. Continuing to monitor for aggression and to promote a safe environment for staff and patients.
[2021-02-03 07:30] VITALS: BP 110/66
[2021-02-03] MEDS: DOCUSATE SODIUM 100 MG CAPSULE PO SCH ×2 (09:09→16:52)
[2021-02-03] MEDS: risperiDONE 2 MG TABLET PO SCH ×2 (09:09→16:53)
[2021-02-03] MEDS: OXCARBAZEPINE 300 MG TABLET PO SCH ×2 (09:10→16:53)
--- NOTE | 2021-02-03 10:22 | NUR ---
Court Hearing: Patient's court hearing for 8130 was today and it was upheld for GD.
--- NOTE | 2021-02-03 10:41 | NUR ---
ELEAZAR Individual Therapy: grease worker met with patient for brief counseling to help address patients presenting problem disorganized thought content. Patient appeared labile and manic. Patient unable to have a proper conversation due to his aggressive behavior. Patient pacing the hallway.
[2021-02-03 15:34] VITALS: BP 112/63
[2021-02-03 20:17] VITALS: BP 110/64
[2021-02-03] MEDS: LORAZEPAM 1 MG TABLET PO PRN (20:18)
--- NOTE | 2021-02-04 06:18 | NUR ---
PT SLEPT 7 H. PT IN NO ACUTE DISTRESS. PT HAD EPISODES OF RESTLESSNESS AND PACING IN THE HALLWAY AN TALKING TO HIMSELF. VITAL SIGNS WITHIN NORMAL LIMIT. PRESCRIBED MEDICATION GIVEN AND PT TOLERATED IT WELL. PT GIVEN ATIVAN 1MG PRN AT 2018H. PT TOLERATED IT WELL. PT STABLE.. PT SHOWERED. SAFETY AND COMFORT PROVIDED. ALL NEEDS ARE MET. WILL ENDORSE TO INCOMING NURSE FOR CONTINUITY OF CARE.
[2021-02-04] MEDS: LORAZEPAM 1 MG TABLET PO PRN (06:23)
--- NOTE | 2021-02-04 06:25 | NUR ---
ATIVAN 1MG PRN GIVEN AT 0623H FOR RESTLESSNESS . PT PACING THE HALLWAY AND TALKING TO HIMSELF. GAIT STEADY. PT STABLE AND IN NO ACUTE DISTRESS. WILL ENDORSE TO INCOMING NURSE.
[2021-02-04 07:30] VITALS: BP 90/52
[2021-02-04] MEDS: DOCUSATE SODIUM 100 MG CAPSULE PO SCH ×2 (08:19→16:47)
[2021-02-04] MEDS: risperiDONE 2 MG TABLET PO SCH ×2 (08:20→16:46)
[2021-02-04] MEDS: OXCARBAZEPINE 300 MG TABLET PO SCH ×2 (08:20→16:46)
[2021-02-04 15:24] VITALS: BP 111/53
[2021-02-04 20:09] VITALS: BP 115/68
[2021-02-05 07:30] VITALS: BP_SYST 108; BP_SYST 143; BP_DIAS 54; BP_DIAS 61
[2021-02-05] MEDS: risperiDONE 2 MG TABLET PO SCH ×2 (08:33→17:02)
[2021-02-05] MEDS: DOCUSATE SODIUM 100 MG CAPSULE PO SCH ×2 (08:33→17:02)
[2021-02-05] MEDS: OXCARBAZEPINE 300 MG TABLET PO SCH ×2 (08:34→17:02)
[2021-02-05 20:20] VITALS: BP 117/64
--- NOTE | 2021-02-06 05:42 | NUR ---
Pt walk in an out of his room walking back forth to nurses station afterwards pt went to bed slept 7 hours no signs of agitation and cooperative with staff no signs of sob or disable.
[2021-02-06 07:30] VITALS: BP 121/71
--- NOTE | 2021-02-06 10:10 | NUR ---
ELEAZAR Individual Therapy: precast concrete ironworker met with patient for brief counseling to help address patients presenting problem disorganized thought content. Patient appeared to be less labile. Patient is able to have a short conversation, however, pt does appear to be tangential and hyperverbal. Pt is unable to have proper conversation due to his confusion. SW unable to provide proper therapy at this time.
[2021-02-06] MEDS: risperiDONE 2 MG TABLET PO SCH ×2 (10:32→18:08)
[2021-02-06] MEDS: OXCARBAZEPINE 300 MG TABLET PO SCH ×2 (10:32→18:08)
[2021-02-06] MEDS: DOCUSATE SODIUM 100 MG CAPSULE PO SCH ×2 (10:33→18:08)
[2021-02-06 16:00] VITALS: BP 100/39
[2021-02-06 20:15] VITALS: BP 116/63
--- NOTE | 2021-02-06 22:59 | NUR ---
Talk to patient at start of shift and pt is alert and oriented pacing back and forth no signs of distress noted. pt has no hs medication. no signs of combative behavior will continue to monitor for safety.
[2021-02-07 07:30] VITALS: BP 129/72
--- NOTE | 2021-02-07 07:56 | NUR ---
Discharge Note: Patient will be discharged to [facility] facility, [facility], [place] [address]; via ambulance at 1PM. Auto Self Service Station Attendant spoke with [facility] Expeditor And Drier at [facility]; ([phone]), who stated patient will be accepted back at facility today. Patient does not have any family members at this time. Patient is alert and oriented x2 and is unable to plan for self-care. Patient denies any suicidal or homicidal ideation. Patient is aware and agreeable with discharge plans. Patient will continue to follow-up with Psychiatrist Dr. Singletary and Manager Hematology Dr. Quach at [facility] [id number] [place] [id number], [place] [address]; ). Patient presents with euthymic mood and congruent affect.
[2021-02-07] MEDS: risperiDONE 2 MG TABLET PO SCH (08:58)
[2021-02-07] MEDS: DOCUSATE SODIUM 100 MG CAPSULE PO SCH (08:58)
[2021-02-07] MEDS: OXCARBAZEPINE 300 MG TABLET PO SCH (08:58)
--- NOTE | 2021-02-07 14:52 | NUR ---
picked up by ambulance taken to [facility]. report given to tower truck driver and nurse at [facility]. belongings reconciled no issues noted
== END 2021-02-07 14:30 | DRG 885 ==
LOC: ER 13:03 → GPS 15:29
PROVIDERS: ADMIT Psychiatry & Neurology Psychosomatic Medicine; ATTEND Internal Medicine
DX: F25.9 Schizoaffective disorder, unspecified (principal); Z91.14 Patient's other noncompliance with medication regimen; Z88.0 Allergy status to penicillin; F29 Unspecified psychosis not due to a substance or known physiological condition; Z20.822 Contact with and (suspected) exposure to COVID-19
CPT/HCPCS: 36415; 84443; 85025; 93005; A4663; G0480; J1200; J2060; J2358; J3486; U0003

== ENCOUNTER → 2021-03-07 | Emergency (ER) | payer MEDICARE, MEDICAID ==
[~2021-03-07] VITALS: Ht 170.2 cm; Wt 61.7 kg
[~2021-03-07] MED LIST: ACET-2154 PO; BISA10SU61 RC; DOCU100C36 PO; MAGN400O6 PO; NA P133E RC
== END | disposition left against medical advice (07) ==
LOC: ER 17:34
DX: Z53.21 Procedure and treatment not carried out due to patient leaving prior to being seen by health care provider (principal)